=== PATIENT | female | born 1965 | race Caucasian/White ===

== ENCOUNTER 2017-08-14 12:31 | Emergency (ER) | payer OTHER ==
[2017-08-14 17:00] VITALS: BP 125/65
--- NOTE | 2017-08-14 17:33 | UC ---
Asthma HPI - HPI Summary HPI Summary: hx asthma. had a head cold that moved to her chest causing cough, congestion and wheezing. head cold resolved but the asthma is still bothering her. denies fever, cp. mild sob at times. - History of Current Complaint Chief Complaint: UCRespiratory Stated Complaint: CHEST CONGESTION Time Seen by Provider: 08/14/17 17:18 Hx Obtained From: Patient Hx Last Menstrual Period: 05/04/17 ?: No Onset/Duration: Gradual Onset Timing: Constant Initial Severity: Mild Pain Intensity: 2 Location/Character: Cough (Productive) Alleviating Factor(s): Nothing Associated Signs and Symptoms: Negative: Chest Pain - Risk Factors Status Asthmaticus Risk Factors: Negative - Allergy/Home Medications Allergies/Adverse Reactions: Allergies Allergy/AdvReac Type Severity Reaction Status Date / Time MS Penicillins [PCN] Allergy Rash Verified 08/14/17 17:00 PMH/Surg Hx/FS Hx/Imm Hx Respiratory History: Asthma - Surgical History Surgical History: Yes Surgery Procedure, Year, and Place: ectopic 2002 - Family History Known Family History: Negative: Diabetes - Social History Occupation: Employed Part-time Alcohol Use: Occasionally Substance Use Type: None Smoking Status (MU): Never Smoked Tobacco Review of Systems Constitutional: Fever Skin: Negative Eyes: Negative ENT: Negative Respiratory: Shortness Of Breath, Cough Cardiovascular: Negative Gastrointestinal: Negative Genitourinary: Negative Is Patient Immunocompromised?: No All Other Systems Reviewed And Are Negative: Yes Physical Exam Triage Information Reviewed: Yes Appearance: Well-Appearing Vital Signs: Initial Vital Signs Temp 98.9 F 08/14/17 16:56 Pulse 86 08/14/17 16:56 Resp 18 08/14/17 16:56 BP 125/65 08/14/17 16:56 Pulse Ox 99 08/14/17 16:56 Vital Signs Reviewed: Yes Eye Exam: Normal ENT Exam: Normal Neck: Positive: Supple, Nontender, No Lymphadenopathy Respiratory: Positive: No respiratory distress, No accessory muscle use, Other: - Mildly decreased BS with a congested cough. Cardiovascular: Positive: RRR, No Murmur, Pulses Normal Abdomen Description: Positive: Nontender, No Organomegaly, Soft Bowel Sounds: Positive: Present Neurological: Positive: Alert Psychological: Positive: Age Appropriate Behavior Skin Exam: Normal Asthma Course/Dx - Course Course Of Treatment: hx and exam c/w asthma flare. will tx albuterol, prednisone and zpak plus close f/u. - Differential Dx/Diagnosis Provider Diagnoses: asthma flare Discharge - Discharge Plan Condition: Stable Disposition: HOME Prescriptions: Albuterol HFA INHALER* [Ventolin HFA Inhaler*] 2 puff INH Q6H 30 Days #1 mdi Azithromycin TAB* [Zithromax TAB (Z-MILDRED) 250 mg #6 tabs] 2 tab PO .TODAY, THEN 1 DAILY #1 mildred predniSONE [Prednisone] 40 mg PO DAILY 5 Days #10 tablet Patient Education Materials: Asthma (ED) Referrals: Ebenezer Caruso MD [Medical Doctor] - 5 Days
== END 2017-08-14 17:42 | disposition home or self-care (01) ==
LOC: UCCORT 12:31
DX: J45.909 Unspecified asthma, uncomplicated (principal)
CPT/HCPCS: 99212; G0463